=== PATIENT | male | born 1990 | race African-American/Black ===

== ENCOUNTER 2020-02-15 09:42 | Emergency (ER) | payer OTHER ==
[~2020-02-15] VITALS: Ht 180.3 cm; Wt 79.4 kg
[2020-02-15 09:51] VITALS: BP 118/73
== END 2020-02-15 11:32 | disposition home or self-care (01) ==
LOC: ER 09:42
DX: S93.121A Dislocation of metatarsophalangeal joint of right great toe, initial encounter (principal); W18.39XA Other fall on same level, initial encounter; Y93.89 Activity, other specified; Y92.89 Other specified places as the place of occurrence of the external cause; Y99.8 Other external cause status
CPT/HCPCS: 28630; 73660

== ENCOUNTER 2021-02-18 11:25 | Inpatient (IN) | payer OTHER ==
[~2021-02-18] VITALS: Ht 180.3 cm; Wt 80.6 kg
[2021-02-18 11:56] LABS: Eosinophils # (auto) 0 10 ^3/uL (0-0.8); Hemoglobin 17.8 g/dL (13.5-17.5); Neutrophils # (auto) 3.3 10 ^3/uL (1.6-8.6); White Blood Cell 5.3 10^3/uL (4.4-10.8)
[2021-02-18 11:57] LABS: Basophils # (auto) 0.1 10 ^3/uL (0-0.2); Hematocrit 50.6 % (41.0-53.0); Lymphocytes # (auto) 1.4 10 ^3/uL (0.4-5.4); Lymphocytes % (auto) 27.4 % (10.0-50.0); Mean Corpuscular Hemoglobin 32.4 pg (28.0-32.0); Mean Corpuscular Hgb Conc. 35.2 g/dL (32.0-36.0); Mean Corpuscular Volume 91.9 fL (80.0-100.0); Monocytes # (auto) 0.5 10 ^3/uL (0-1.3); Monocytes % (auto) 8.8 % (0.0-12.0); Neutrophils % (auto) 62.8 % (37.0-80.0); Nucleated Red Blood Cells % 0.1 %; Red Cell Distribution Width 14.4 % (11.8-14.3)
[2021-02-18 12:13] LABS: Albumin 3.8 g/dL (3.4-5.0); Calcium 8.3 mg/dL (8.5-10.1); Potassium 4.1 mmol/L (3.5-5.1)
[2021-02-18 12:17] LABS: BUN/Creatinine Ratio 7.3; Bilirubin, Total 0.5 mg/dL (0.2-1.0); Total Protein 8.2 g/dL (6.4-8.2)
[2021-02-18] MEDS ORDERED: METOCLOPRAMIDE HCL 5MG/ml INJ 2ml VIAL IV ONE (12:45)
[2021-02-18] MEDS ORDERED: SODIUM CHLORIDE 0.9% 1,000 ML IVB ONE (12:45)
[2021-02-18] MEDS ORDERED: KETOROLAC TROMETH 30 MG/ML 1ML VIAL IV ONE (12:45)
[2021-02-18] MEDS ORDERED: AZITHROMYCIN 500MG/ 250ML 250 ML IV ONE (13:15)
[2021-02-18] MEDS ORDERED: hydrOXYchloroQUINE SULFATE 200 MG TAB PO ONE (13:30)
[2021-02-18] MEDS ORDERED: DexAMETHasone SOD PHOS 10MG/1ML VIAL INJ IV ONE (13:30)
[2021-02-18] MEDS ORDERED: ZINC SULFATE 220mg CAP or TAB PO ONE (13:30)
[2021-02-18] MEDS ORDERED: ASCORBIC ACID 500 MG TAB PO ONE (13:30)
[2021-02-18] MEDS ORDERED: CHOLECALCIFEROL (VITD3) 2,000 UNIT CAP/TAB PO ONE (13:30)
[2021-02-18] MEDS ORDERED: DexAMETHasone INJECTION 10 MG in D5W 5% 50 ML IV ONE (13:30)
[2021-02-18] MEDS ORDERED: NITROGLYCERIN 0.4 MG SL TAB SL PRN (17:15)
[2021-02-18] MEDS ORDERED: MORPHINE SULFATE INJECTION 2 MG/2 ML SYRG IV PRN ×2 (17:15)
[2021-02-18] MEDS ORDERED: ONDANSETRON HCL 4 MG/2 ML VIAL IV PRN (17:15)
[2021-02-18] MEDS ORDERED: SODIUM CHLORIDE 0.9% 1,000 ML IV ONE (17:15)
[2021-02-18 19:45] VITALS: BP 112/74
[2021-02-18] MEDS: BUDESONIDE (INHALATION) 180 MCG IH IN SCH (22:00)
[2021-02-18 23:00] VITALS: BP 115/60
[2021-02-18] MEDS: ALBUTEROL SULF HFA 90MCG INH 200DOSE IN PRN (23:04)
[2021-02-18] MEDS: ENOXAPARIN SOD 40 MG/0.4 ML SYRINGE SC SCH (23:09)
[2021-02-18] MEDS: ACETAMINOPHEN 500 MG TAB PO PRN (23:10)
[2021-02-19 05:00] VITALS: BP 111/66
[2021-02-19] MEDS: BUDESONIDE (INHALATION) 180 MCG IH IN SCH ×2 (06:46→22:25)
[2021-02-19] MEDS: ALBUTEROL SULF HFA 90MCG INH 200DOSE IN PRN ×2 (06:47→22:25)
[2021-02-19 09:00] VITALS: BP 114/60
[2021-02-19] MEDS: ZINC SULFATE 220mg CAP or TAB PO SCH (11:14)
[2021-02-19] MEDS: ASCORBIC ACID 1,000 MG TAB PO SCH (11:14)
[2021-02-19] MEDS: IVERMECTIN 3 MG TAB PO SCH (11:14)
[2021-02-19] MEDS: DexAMETHasone SOD PHOS 10MG/1ML VIAL INJ IV SCH (11:14)
[2021-02-19] MEDS: AZITHROMYCIN 500MG/ 250ML 250 ML IV SCH (11:14)
[2021-02-19] MEDS: ACETAMINOPHEN 500 MG TAB PO PRN (11:15)
[2021-02-19] MEDS: CHOLECALCIFEROL (VITD3) 2,000 UNIT CAP/TAB PO SCH (11:15)
[2021-02-19] MEDS: ENOXAPARIN SOD 40 MG/0.4 ML SYRINGE SC SCH ×2 (11:15→21:27)
[2021-02-19 13:00] VITALS: BP 103/66
[2021-02-19 17:00] VITALS: BP 111/71
[2021-02-19] MEDS: FAMOTIDINE 20 MG TAB PO SCH (21:27)
[2021-02-19 22:00] VITALS: BP 119/66
[2021-02-20 05:00] VITALS: BP 110/74
[2021-02-20 06:43] LABS: Basophils # (auto) 0 10 ^3/uL (0-0.2); Basophils % (auto) 0.2 % (0.0-2.0); Eosinophils # (auto) 0 10 ^3/uL (0-0.8); Hematocrit 45.7 % (41.0-53.0); Hemoglobin 15.9 g/dL (13.5-17.5); Lymphocytes # (auto) 1.1 10 ^3/uL (0.4-5.4); Lymphocytes % (auto) 20.1 % (10.0-50.0); Mean Corpuscular Hemoglobin 32.1 pg (28.0-32.0); Mean Corpuscular Hgb Conc. 34.9 g/dL (32.0-36.0); Monocytes # (auto) 0.4 10 ^3/uL (0-1.3); Monocytes % (auto) 7.3 % (0.0-12.0); Neutrophils # (auto) 3.8 10 ^3/uL (1.6-8.6); Neutrophils % (auto) 72.4 % (37.0-80.0); Nucleated Red Blood Cells % 0.3 %; Red Blood Cells 4.97 10^6/uL (4.5-5.90); Red Cell Distribution Width 14.2 % (11.8-14.3); White Blood Cell 5.3 10^3/uL (4.4-10.8)
[2021-02-20 07:01] LABS: Albumin 3.1 g/dL (3.4-5.0); Calcium 8.2 mg/dL (8.5-10.1); Magnesium 2.4 mg/dL (1.6-2.6); Potassium 4.2 mmol/L (3.5-5.1)
[2021-02-20 07:13] LABS: BUN/Creatinine Ratio 8.4; Bilirubin, Total 0.4 mg/dL (0.2-1.0); CRP High Sensitivity 2.82 mg/dL (< 0.3)
[2021-02-20] MEDS: BUDESONIDE (INHALATION) 180 MCG IH IN SCH ×2 (07:17→22:56)
[2021-02-20] MEDS: ALBUTEROL SULF HFA 90MCG INH 200DOSE IN PRN ×2 (07:17→23:29)
[2021-02-20 09:00] VITALS: BP 123/70
[2021-02-20] MEDS: DexAMETHasone SOD PHOS 10MG/1ML VIAL INJ IV SCH (10:17)
[2021-02-20] MEDS: ASCORBIC ACID 1,000 MG TAB PO SCH (10:18)
[2021-02-20] MEDS: IVERMECTIN 3 MG TAB PO SCH (10:18)
[2021-02-20] MEDS: FAMOTIDINE 20 MG TAB PO SCH ×2 (10:18→22:39)
[2021-02-20] MEDS: ZINC SULFATE 220mg CAP or TAB PO SCH (10:18)
[2021-02-20] MEDS: CHOLECALCIFEROL (VITD3) 2,000 UNIT CAP/TAB PO SCH (10:18)
[2021-02-20] MEDS: ENOXAPARIN SOD 40 MG/0.4 ML SYRINGE SC SCH ×2 (10:18→22:39)
[2021-02-20] MEDS: AZITHROMYCIN 500MG/ 250ML 250 ML IV SCH (10:18)
[2021-02-20] MEDS: ACETAMINOPHEN 500 MG TAB PO PRN (10:19)
[2021-02-20 13:00] VITALS: BP 93/56
[2021-02-20 17:00] VITALS: BP 113/70
[2021-02-20] MEDS: guaiFENesin-DM 100/10mg/5ml SYR PO PRN (20:29)
[2021-02-20 22:00] VITALS: BP 90/61
[2021-02-21] MEDS: guaiFENesin-DM 100/10mg/5ml SYR PO PRN ×2 (04:23→19:28)
[2021-02-21 05:00] VITALS: BP 123/71
[2021-02-21] MEDS: ACETAMINOPHEN 500 MG TAB PO PRN (05:51)
[2021-02-21] MEDS: BUDESONIDE (INHALATION) 180 MCG IH IN SCH ×2 (07:13→21:40)
[2021-02-21] MEDS: ALBUTEROL SULF HFA 90MCG INH 200DOSE IN PRN ×2 (07:13→22:52)
[2021-02-21 09:00] VITALS: BP 112/65
[2021-02-21] MEDS: ZINC SULFATE 220mg CAP or TAB PO SCH (12:44)
[2021-02-21] MEDS: DexAMETHasone SOD PHOS 10MG/1ML VIAL INJ IV SCH (12:44)
[2021-02-21] MEDS: IVERMECTIN 3 MG TAB PO SCH (12:44)
[2021-02-21] MEDS: AZITHROMYCIN 500MG/ 250ML 250 ML IV SCH (12:44)
[2021-02-21] MEDS: FAMOTIDINE 20 MG TAB PO SCH ×2 (12:44→21:56)
[2021-02-21] MEDS: ASCORBIC ACID 1,000 MG TAB PO SCH (12:45)
[2021-02-21] MEDS: CHOLECALCIFEROL (VITD3) 2,000 UNIT CAP/TAB PO SCH (12:45)
[2021-02-21] MEDS: ENOXAPARIN SOD 40 MG/0.4 ML SYRINGE SC SCH ×2 (12:45→21:56)
[2021-02-21 13:00] VITALS: BP 117/67
[2021-02-21] MEDS: cefTRIAXone 1GM/50ML D5W 50 ML IV SCH (14:50)
[2021-02-21 16:58] VITALS: BP 122/71
[2021-02-21 22:00] VITALS: BP 109/71
[2021-02-22 01:42] VITALS: BP 109/70
[2021-02-22 05:00] VITALS: BP 110/69
[2021-02-22] MEDS: ALBUTEROL SULF HFA 90MCG INH 200DOSE IN PRN (07:11)
[2021-02-22] MEDS: BUDESONIDE (INHALATION) 180 MCG IH IN SCH ×2 (07:11→23:14)
[2021-02-22] MEDS: cefTRIAXone 1GM/50ML D5W 50 ML IV SCH (07:59)
[2021-02-22] MEDS: DexAMETHasone SOD PHOS 10MG/1ML VIAL INJ IV SCH (08:39)
[2021-02-22] MEDS: AZITHROMYCIN 500MG/ 250ML 250 ML IV SCH (08:40)
[2021-02-22] MEDS: ZINC SULFATE 220mg CAP or TAB PO SCH (08:41)
[2021-02-22] MEDS: FAMOTIDINE 20 MG TAB PO SCH ×2 (08:42→22:35)
[2021-02-22] MEDS: ASCORBIC ACID 1,000 MG TAB PO SCH (08:42)
[2021-02-22] MEDS: IVERMECTIN 3 MG TAB PO SCH (08:42)
[2021-02-22] MEDS: ENOXAPARIN SOD 40 MG/0.4 ML SYRINGE SC SCH ×2 (08:43→22:35)
[2021-02-22] MEDS: CHOLECALCIFEROL (VITD3) 2,000 UNIT CAP/TAB PO SCH (08:43)
[2021-02-22 09:00] VITALS: BP 128/74
[2021-02-22 13:00] VITALS: BP 118/76
[2021-02-22 17:00] VITALS: BP 131/76
[2021-02-22 21:41] VITALS: BP 114/71
[2021-02-23] MEDS: ALBUTEROL SULF HFA 90MCG INH 200DOSE IN PRN ×3 (00:07→20:01)
[2021-02-23 05:00] VITALS: BP 113/70
[2021-02-23] MEDS: BUDESONIDE (INHALATION) 180 MCG IH IN SCH ×2 (06:47→20:01)
[2021-02-23] MEDS: cefTRIAXone 1GM/50ML D5W 50 ML IV SCH (07:55)
[2021-02-23] MEDS: FAMOTIDINE 20 MG TAB PO SCH ×2 (07:56→21:18)
[2021-02-23] MEDS: ZINC SULFATE 220mg CAP or TAB PO SCH (07:56)
[2021-02-23] MEDS: DexAMETHasone SOD PHOS 10MG/1ML VIAL INJ IV SCH (07:56)
[2021-02-23] MEDS: CHOLECALCIFEROL (VITD3) 2,000 UNIT CAP/TAB PO SCH (07:57)
[2021-02-23] MEDS: IVERMECTIN 3 MG TAB PO SCH (07:57)
[2021-02-23] MEDS: ASCORBIC ACID 1,000 MG TAB PO SCH (07:57)
[2021-02-23] MEDS: ENOXAPARIN SOD 40 MG/0.4 ML SYRINGE SC SCH ×2 (07:57→21:19)
[2021-02-23 09:00] VITALS: BP 115/70
[2021-02-23] MEDS: AZITHROMYCIN 500MG/ 250ML 250 ML IV SCH (09:02)
[2021-02-23] MEDS ORDERED: ERGOCALCIFEROL 50,000 UNIT(1.25MG) CAP PO ONE (11:45)
[2021-02-23] MEDS ORDERED: REMDESIVIR PER PHARMACY 0 ML IV SCH (11:45)
[2021-02-23 12:25] LABS: BUN/Creatinine Ratio 15.8; Calcium 8.8 mg/dL (8.5-10.1); Potassium 4.4 mmol/L (3.5-5.1)
[2021-02-23 13:00] VITALS: BP 119/72
[2021-02-23] MEDS ORDERED: FUROSEMIDE 20 MG/2 ML VIAL IV ONE (13:00)
[2021-02-23] MEDS ORDERED: REMDESIVIR 200 MG in NS 210ml LOADING DOSE ADULT IV ONE (15:00)
[2021-02-23 17:00] VITALS: BP 108/81
[2021-02-23] MEDS: DOXYCYCLINE 100MG/250ML 250 ML IV SCH (21:18)
[2021-02-23 22:00] VITALS: BP 116/72
[2021-02-24 04:36] VITALS: BP 111/63
[2021-02-24 06:54] LABS: Basophils # (auto) 0 10 ^3/uL (0-0.2); Basophils % (auto) 0.2 % (0.0-2.0); Eosinophils # (auto) 0 10 ^3/uL (0-0.8); Eosinophils % (auto) 0.1 % (0.0-7.0); Hematocrit 49.1 % (41.0-53.0); Lymphocytes # (auto) 1.1 10 ^3/uL (0.4-5.4); Lymphocytes % (auto) 12.8 % (10.0-50.0); Mean Corpuscular Hemoglobin 32.2 pg (28.0-32.0); Mean Corpuscular Hgb Conc. 34.5 g/dL (32.0-36.0); Mean Corpuscular Volume 93.3 fL (80.0-100.0); Monocytes # (auto) 0.8 10 ^3/uL (0-1.3); Monocytes % (auto) 9.2 % (0.0-12.0); Neutrophils # (auto) 6.5 10 ^3/uL (1.6-8.6); Neutrophils % (auto) 77.7 % (37.0-80.0); Red Blood Cells 5.27 10^6/uL (4.5-5.90); Red Cell Distribution Width 14.3 % (11.8-14.3); White Blood Cell 8.3 10^3/uL (4.4-10.8)
[2021-02-24] MEDS: ALBUTEROL SULF HFA 90MCG INH 200DOSE IN PRN ×2 (07:20→21:16)
[2021-02-24] MEDS: BUDESONIDE (INHALATION) 180 MCG IH IN SCH ×2 (07:20→21:16)
[2021-02-24 07:31] LABS: Albumin 2.6 g/dL (3.4-5.0); BUN/Creatinine Ratio 21.5; Bilirubin, Total 0.5 mg/dL (0.2-1.0); CRP High Sensitivity 9.95 mg/dL (< 0.3); Calcium 8.9 mg/dL (8.5-10.1); Magnesium 2.7 mg/dL (1.6-2.6); Total Protein 7.6 g/dL (6.4-8.2)
[2021-02-24] MEDS: DexAMETHasone SOD PHOS 10MG/1ML VIAL INJ IV SCH (07:58)
[2021-02-24] MEDS: DOXYCYCLINE 100MG/250ML 250 ML IV SCH (07:58)
[2021-02-24] MEDS: ZINC SULFATE 220mg CAP or TAB PO SCH (07:58)
[2021-02-24] MEDS: ASCORBIC ACID 1,000 MG TAB PO SCH (07:59)
[2021-02-24] MEDS: ENOXAPARIN SOD 40 MG/0.4 ML SYRINGE SC SCH ×2 (07:59→22:03)
[2021-02-24] MEDS: FAMOTIDINE 20 MG TAB PO SCH ×2 (07:59→22:02)
[2021-02-24 08:48] VITALS: BP 111/73
[2021-02-24] MEDS: FUROSEMIDE 20 MG/2 ML VIAL IV SCH (09:57)
[2021-02-24] MEDS ORDERED: CHOLECALCIFEROL (VITD3) 2,000 UNIT CAP/TAB PO SCH (10:00)
[2021-02-24 13:00] VITALS: BP 115/69
[2021-02-24] MEDS: REMDESIVIR 100mg 100 MG in SODIUM CHL 0.9% 230 ML IV SCH (14:51)
[2021-02-24 16:53] VITALS: BP 108/57
[2021-02-24] MEDS: DOXYCYCLINE 100 MG TAB/CAP PO SCH (22:03)
[2021-02-24 22:07] VITALS: BP 112/68
[2021-02-25 03:00] VITALS: BP 112/68
[2021-02-25 05:00] VITALS: BP 120/72
[2021-02-25 06:45] LABS: Albumin 2.7 g/dL (3.4-5.0); Calcium 9.2 mg/dL (8.5-10.1); Potassium 4.1 mmol/L (3.5-5.1)
[2021-02-25 06:49] LABS: Bilirubin, Total 0.5 mg/dL (0.2-1.0); Total Protein 7.8 g/dL (6.4-8.2)
[2021-02-25] MEDS: ALBUTEROL SULF HFA 90MCG INH 200DOSE IN PRN ×2 (06:56→22:20)
[2021-02-25] MEDS: BUDESONIDE (INHALATION) 180 MCG IH IN SCH ×2 (06:56→22:20)
[2021-02-25 09:00] VITALS: BP 122/77
[2021-02-25] MEDS: ENOXAPARIN SOD 40 MG/0.4 ML SYRINGE SC SCH ×2 (09:27→23:05)
[2021-02-25] MEDS: DexAMETHasone SOD PHOS 10MG/1ML VIAL INJ IV SCH (09:27)
[2021-02-25] MEDS: ZINC SULFATE 220mg CAP or TAB PO SCH (09:27)
[2021-02-25] MEDS: ASCORBIC ACID 1,000 MG TAB PO SCH (09:28)
[2021-02-25] MEDS: DOXYCYCLINE 100 MG TAB/CAP PO SCH ×2 (09:28→23:05)
[2021-02-25] MEDS: FAMOTIDINE 20 MG TAB PO SCH ×2 (09:28→23:04)
[2021-02-25] MEDS: CHOLECALCIFEROL (VITD3) 2,000 UNIT CAP/TAB PO SCH (09:28)
[2021-02-25] MEDS: DOCUSATE SOD 100 MG CAP PO SCH ×2 (09:28→23:04)
[2021-02-25] MEDS: FUROSEMIDE 20 MG/2 ML VIAL IV SCH (09:30)
[2021-02-25] MEDS: LACTULOSE 20Gm/30ML SOLN PO PRN (09:43)
[2021-02-25] MEDS ORDERED: CHOLECALCIFEROL (VITD3) 2,000 UNIT CAP/TAB PO SCH (10:00)
[2021-02-25] MEDS: REMDESIVIR 100mg 100 MG in SODIUM CHL 0.9% 230 ML IV SCH (14:49)
[2021-02-25 17:00] VITALS: BP 109/73
[2021-02-25 22:00] VITALS: BP 117/71
[2021-02-26 05:00] VITALS: BP 109/72
[2021-02-26] MEDS: BUDESONIDE (INHALATION) 180 MCG IH IN SCH ×2 (07:00→21:38)
[2021-02-26] MEDS: ALBUTEROL SULF HFA 90MCG INH 200DOSE IN PRN ×2 (07:00→21:38)
[2021-02-26 07:02] LABS: Albumin 2.8 g/dL (3.4-5.0); Potassium 3.9 mmol/L (3.5-5.1)
[2021-02-26 07:05] LABS: Bilirubin, Total 0.6 mg/dL (0.2-1.0); Total Protein 7.7 g/dL (6.4-8.2)
[2021-02-26 08:30] VITALS: BP 124/73
[2021-02-26] MEDS: ENOXAPARIN SOD 40 MG/0.4 ML SYRINGE SC SCH ×2 (10:00→21:49)
[2021-02-26] MEDS: DexAMETHasone SOD PHOS 10MG/1ML VIAL INJ IV SCH (10:05)
[2021-02-26] MEDS: DOCUSATE SOD 100 MG CAP PO SCH ×2 (10:06→21:49)
[2021-02-26] MEDS: ZINC SULFATE 220mg CAP or TAB PO SCH (10:06)
[2021-02-26] MEDS: FUROSEMIDE 20 MG/2 ML VIAL IV SCH (10:06)
[2021-02-26] MEDS: DOXYCYCLINE 100 MG TAB/CAP PO SCH ×2 (10:07→21:49)
[2021-02-26] MEDS: ASCORBIC ACID 1,000 MG TAB PO SCH (10:07)
[2021-02-26] MEDS: FAMOTIDINE 20 MG TAB PO SCH ×2 (10:07→21:49)
[2021-02-26] MEDS: CHOLECALCIFEROL (VITD3) 2,000 UNIT CAP/TAB PO SCH (10:07)
[2021-02-26] MEDS: ACETAMINOPHEN 500 MG TAB PO PRN ×2 (10:46→22:47)
[2021-02-26 12:30] VITALS: BP 111/69
[2021-02-26] MEDS: REMDESIVIR 100mg 100 MG in SODIUM CHL 0.9% 230 ML IV SCH (13:06)
[2021-02-26] MEDS: LACTULOSE 20Gm/30ML SOLN PO PRN (13:07)
[2021-02-26] MEDS: guaiFENesin-DM 100/10mg/5ml SYR PO PRN (13:07)
[2021-02-26 17:00] VITALS: BP 119/73
[2021-02-26 22:07] VITALS: BP 113/78
[2021-02-27 05:00] VITALS: BP 124/71
[2021-02-27 06:22] LABS: INR 1.21 (0.9-1.15)
[2021-02-27 06:51] LABS: Albumin 2.5 g/dL (3.4-5.0); Calcium 8.6 mg/dL (8.5-10.1); Magnesium 2.3 mg/dL (1.6-2.6); Potassium 3.8 mmol/L (3.5-5.1)
[2021-02-27 07:04] LABS: Bilirubin, Total 0.7 mg/dL (0.2-1.0); Total Protein 7.2 g/dL (6.4-8.2)
[2021-02-27 07:22] LABS: BUN/Creatinine Ratio 15.8
[2021-02-27] MEDS: DexAMETHasone SOD PHOS 10MG/1ML VIAL INJ IV SCH (07:46)
[2021-02-27] MEDS: FUROSEMIDE 20 MG/2 ML VIAL IV SCH (07:47)
[2021-02-27] MEDS: DOXYCYCLINE 100 MG TAB/CAP PO SCH ×2 (07:48→22:15)
[2021-02-27] MEDS: ZINC SULFATE 220mg CAP or TAB PO SCH (07:48)
[2021-02-27] MEDS: FAMOTIDINE 20 MG TAB PO SCH ×2 (07:49→22:15)
[2021-02-27] MEDS: CHOLECALCIFEROL (VITD3) 2,000 UNIT CAP/TAB PO SCH (07:50)
[2021-02-27] MEDS: ASCORBIC ACID 1,000 MG TAB PO SCH (07:50)
[2021-02-27] MEDS: DOCUSATE SOD 100 MG CAP PO SCH ×2 (07:51→22:15)
[2021-02-27] MEDS: ENOXAPARIN SOD 40 MG/0.4 ML SYRINGE SC SCH ×2 (07:51→22:15)
[2021-02-27] MEDS: guaiFENesin-DM 100/10mg/5ml SYR PO PRN ×2 (07:52→22:26)
[2021-02-27 08:00] VITALS: BP 110/61
[2021-02-27 08:56] VITALS: BP 110/61
[2021-02-27] MEDS: ALBUTEROL SULF HFA 90MCG INH 200DOSE IN PRN ×2 (09:05→22:21)
[2021-02-27] MEDS: BUDESONIDE (INHALATION) 180 MCG IH IN SCH ×2 (09:05→22:21)
[2021-02-27] MEDS ORDERED: CHOLECALCIFEROL (VITD3) 2,000 UNIT CAP/TAB PO ONE (10:30)
[2021-02-27] MEDS: TOCILIZUMAB 400 MG in SODIUM CHL 0.9% 80 ML IV SCH (12:21)
[2021-02-27 14:00] VITALS: BP 120/69
[2021-02-27] MEDS: REMDESIVIR 100mg 100 MG in SODIUM CHL 0.9% 230 ML IV SCH (16:03)
[2021-02-27 17:10] VITALS: BP 116/71
[2021-02-27 22:21] VITALS: BP 125/72
[2021-02-28 04:11] VITALS: BP 125/72
[2021-02-28 05:11] VITALS: BP 108/69
[2021-02-28] MEDS: ALBUTEROL SULF HFA 90MCG INH 200DOSE IN PRN ×2 (07:01→19:45)
[2021-02-28] MEDS: BUDESONIDE (INHALATION) 180 MCG IH IN SCH ×2 (07:02→19:45)
[2021-02-28 07:56] LABS: Mean Corpuscular Hgb Conc. 34.6 g/dL (32.0-36.0)
[2021-02-28 07:58] LABS: Hematocrit 48.2 % (41.0-53.0); Hemoglobin 16.7 g/dL (13.5-17.5); Mean Corpuscular Volume 92.5 fL (80.0-100.0); Red Cell Distribution Width 14.1 % (11.8-14.3)
[2021-02-28 08:10] LABS: INR 1.14 (0.9-1.15)
[2021-02-28 08:17] LABS: Calcium 8.7 mg/dL (8.5-10.1); Potassium 4.4 mmol/L (3.5-5.1)
[2021-02-28 08:26] LABS: Band Neutrophils % (manual) 0; Basophils % (manual) 0 (0.0-2.0); Blast Cells 0; Metamyelocytes % 0; Myelocytes % 0; Promyelocytes % 0
[2021-02-28] MEDS: DexAMETHasone SOD PHOS 10MG/1ML VIAL INJ IV SCH (09:03)
[2021-02-28] MEDS: ZINC SULFATE 220mg CAP or TAB PO SCH (09:04)
[2021-02-28] MEDS: FUROSEMIDE 20 MG/2 ML VIAL IV SCH (09:04)
[2021-02-28] MEDS: DOCUSATE SOD 100 MG CAP PO SCH ×2 (09:05→22:20)
[2021-02-28] MEDS: POTASSIUM CHL 20 Meq TABLET PO SCH (09:05)
[2021-02-28] MEDS: ASCORBIC ACID 1,000 MG TAB PO SCH (09:06)
[2021-02-28] MEDS: DOXYCYCLINE 100 MG TAB/CAP PO SCH ×2 (09:06→22:20)
[2021-02-28] MEDS: FAMOTIDINE 20 MG TAB PO SCH ×2 (09:06→22:20)
[2021-02-28] MEDS: CHOLECALCIFEROL (VITD3) 2,000 UNIT CAP/TAB PO SCH (09:07)
[2021-02-28] MEDS: ENOXAPARIN SOD 40 MG/0.4 ML SYRINGE SC SCH ×2 (09:07→22:21)
[2021-02-28 09:17] VITALS: BP 117/65
[2021-02-28] MEDS: guaiFENesin-DM 100/10mg/5ml SYR PO PRN ×2 (09:34→22:44)
[2021-02-28] MEDS ORDERED: CHOLECALCIFEROL (VITD3) 2,000 UNIT CAP/TAB PO SCH (10:00)
[2021-02-28] MEDS: TOCILIZUMAB 400 MG in SODIUM CHL 0.9% 80 ML IV SCH (11:28)
[2021-02-28 12:23] LABS: Eosinophils % (manual) 2 (0-7); Lymphocytes % (manual) 18 (10.0-50.0); Monocytes % (manual) 5 (0-12); Reactive Lymphocytes 2
[2021-02-28 13:34] VITALS: BP 116/71
[2021-02-28 17:19] VITALS: BP 107/68
[2021-02-28 17:33] LABS: Mean Corpuscular Hemoglobin 32.3 pg (28.0-32.0)
[2021-02-28 17:35] LABS: Hematocrit 50.7 % (41.0-53.0); Hemoglobin 17.8 g/dL (13.5-17.5); Mean Corpuscular Volume 92.2 fL (80.0-100.0); Red Cell Distribution Width 14.4 % (11.8-14.3); White Blood Cell 12.5 10^3/uL (4.4-10.8)
[2021-02-28 17:43] LABS: Albumin 2.8 g/dL (3.4-5.0); Bilirubin, Direct 0.2 mg/dL (0-0.2)
[2021-02-28 17:45] LABS: Band Neutrophils % (manual) 0; Basophils % (manual) 0 (0.0-2.0); Blast Cells 0; Metamyelocytes % 0; Myelocytes % 0; Promyelocytes % 0; Reactive Lymphocytes 0
[2021-02-28 17:46] LABS: Bilirubin, Total 0.4 mg/dL (0.2-1.0); Total Protein 8.2 g/dL (6.4-8.2)
[2021-02-28 18:05] LABS: Eosinophils % (manual) 2 (0-7); Lymphocytes % (manual) 14 (10.0-50.0); Monocytes % (manual) 5 (0-12)
[2021-02-28 19:08] LABS: INR 1.18 (0.9-1.15); Partial Thromboplastin Time 30.2 sec (23.6-33.0)
[2021-02-28 22:25] VITALS: BP 116/71
[2021-02-28] MEDS: ACETAMINOPHEN 500 MG TAB PO PRN (22:44)
[2021-03-01 05:16] VITALS: BP 107/74
[2021-03-01 08:00] VITALS: BP 107/68
[2021-03-01] MEDS: DexAMETHasone SOD PHOS 10MG/1ML VIAL INJ IV SCH (10:00)
[2021-03-01] MEDS: BUDESONIDE (INHALATION) 180 MCG IH IN SCH ×2 (10:00→21:46)
[2021-03-01] MEDS: guaiFENesin-DM 100/10mg/5ml SYR PO PRN ×2 (10:11→22:30)
[2021-03-01] MEDS: DOCUSATE SOD 100 MG CAP PO SCH ×2 (10:12→22:23)
[2021-03-01] MEDS: ZINC SULFATE 220mg CAP or TAB PO SCH (10:12)
[2021-03-01] MEDS: FAMOTIDINE 20 MG TAB PO SCH ×2 (10:12→22:23)
[2021-03-01] MEDS: POTASSIUM CHL 20 Meq TABLET PO SCH (10:12)
[2021-03-01] MEDS: FUROSEMIDE 20 MG/2 ML VIAL IV SCH (10:12)
[2021-03-01] MEDS: ENOXAPARIN SOD 40 MG/0.4 ML SYRINGE SC SCH ×2 (10:13→22:23)
[2021-03-01] MEDS: DOXYCYCLINE 100 MG TAB/CAP PO SCH (10:13)
[2021-03-01] MEDS: CHOLECALCIFEROL (VITD3) 2,000 UNIT CAP/TAB PO SCH (10:13)
[2021-03-01] MEDS: ASCORBIC ACID 1,000 MG TAB PO SCH (10:13)
[2021-03-01 12:00] VITALS: BP 109/67
[2021-03-01 16:00] VITALS: BP 118/62
[2021-03-01 19:12] LABS: Hematocrit 48.7 % (41.0-53.0); Hemoglobin 17.1 g/dL (13.5-17.5); Mean Corpuscular Hemoglobin 32.4 pg (28.0-32.0); Mean Corpuscular Hgb Conc. 35.1 g/dL (32.0-36.0); Mean Corpuscular Volume 92.3 fL (80.0-100.0); Red Blood Cells 5.27 10^6/uL (4.5-5.90); White Blood Cell 10.8 10^3/uL (4.4-10.8)
[2021-03-01 19:27] LABS: BUN/Creatinine Ratio 15.8; Potassium 4.1 mmol/L (3.5-5.1)
[2021-03-01 19:39] LABS: Basophils % (manual) 0 (0.0-2.0); Blast Cells 0; Metamyelocytes % 0; Myelocytes % 0; Promyelocytes % 0; Reactive Lymphocytes 0
[2021-03-01 20:32] LABS: Band Neutrophils % (manual) 2; Eosinophils % (manual) 1 (0-7); Lymphocytes % (manual) 13 (10.0-50.0); Monocytes % (manual) 4 (0-12)
[2021-03-01 22:25] VITALS: BP 117/73
[2021-03-02] VITALS (7 sets, daily range): BP systolic 100–116; BP diastolic 54–82
[2021-03-02] MEDS: ALBUTEROL SULF HFA 90MCG INH 200DOSE IN PRN ×2 (06:13→20:11)
[2021-03-02] MEDS: BUDESONIDE (INHALATION) 180 MCG IH IN SCH ×2 (06:13→20:11)
[2021-03-02] MEDS: POTASSIUM CHL 20 Meq TABLET PO SCH (09:23)
[2021-03-02] MEDS: ASCORBIC ACID 1,000 MG TAB PO SCH (09:23)
[2021-03-02] MEDS: ZINC SULFATE 220mg CAP or TAB PO SCH (09:23)
[2021-03-02] MEDS: DOCUSATE SOD 100 MG CAP PO SCH ×2 (09:24→21:59)
[2021-03-02] MEDS: FAMOTIDINE 20 MG TAB PO SCH ×2 (09:24→21:59)
[2021-03-02] MEDS: ENOXAPARIN SOD 40 MG/0.4 ML SYRINGE SC SCH ×2 (09:26→21:59)
[2021-03-02] MEDS: CHOLECALCIFEROL (VITD3) 2,000 UNIT CAP/TAB PO SCH (09:26)
[2021-03-02] MEDS: FUROSEMIDE 20 MG/2 ML VIAL IV SCH (09:26)
[2021-03-02] MEDS: DexAMETHasone SOD PHOS 10MG/1ML VIAL INJ IV SCH (09:27)
[2021-03-02] MEDS ORDERED: ASPI-463 PO (12:06)
[2021-03-02] MEDS ORDERED: ASCO10003 PO (12:06)
[2021-03-02] MEDS ORDERED: ALBUAER3 IN (12:06)
[2021-03-02] MEDS ORDERED: BUDE2SUS3 IN (12:06)
[2021-03-02] MEDS ORDERED: FAMO-12 PO (12:06)
[2021-03-02] MEDS ORDERED: DEXT1SYP9 PO (12:06)
[2021-03-02] MEDS ORDERED: DOXY-286 PO (12:06)
[2021-03-02] MEDS ORDERED: CHOL20007 PO (12:06)
[2021-03-02] MEDS ORDERED: DEX4T PO (12:06)
[2021-03-02] MEDS ORDERED: ZINC220T6 PO (12:06)
[2021-03-02] MEDS ORDERED: IOHEXOL 350 MG/ML 100ML IJ ONE (16:32)
[2021-03-02] MEDS: guaiFENesin-DM 100/10mg/5ml SYR PO PRN (22:00)
[2021-03-03 06:08] VITALS: BP 119/71
[2021-03-03 06:46] LABS: BUN/Creatinine Ratio 24.4; Calcium 8.4 mg/dL (8.5-10.1)
[2021-03-03] MEDS: ALBUTEROL SULF HFA 90MCG INH 200DOSE IN PRN (06:51)
[2021-03-03] MEDS: BUDESONIDE (INHALATION) 180 MCG IH IN SCH (06:51)
[2021-03-03 09:00] VITALS: BP 99/52
[2021-03-03] MEDS: FUROSEMIDE 20 MG/2 ML VIAL IV SCH (09:58)
[2021-03-03] MEDS: DexAMETHasone SOD PHOS 10MG/1ML VIAL INJ IV SCH (09:58)
[2021-03-03] MEDS: POTASSIUM CHL 20 Meq TABLET PO SCH (10:00)
[2021-03-03] MEDS: ASCORBIC ACID 1,000 MG TAB PO SCH (10:00)
[2021-03-03] MEDS: FAMOTIDINE 20 MG TAB PO SCH (10:00)
[2021-03-03] MEDS: ZINC SULFATE 220mg CAP or TAB PO SCH (10:00)
[2021-03-03] MEDS: CHOLECALCIFEROL (VITD3) 2,000 UNIT CAP/TAB PO SCH (10:00)
[2021-03-03] MEDS: DOCUSATE SOD 100 MG CAP PO SCH (10:00)
[2021-03-03] MEDS: ENOXAPARIN SOD 40 MG/0.4 ML SYRINGE SC SCH (10:00)
[2021-03-03 13:00] VITALS: BP 122/68
== END 2021-03-03 17:10 | disposition home or self-care (01) | DRG 871 ==
LOC: ER 11:25 → TELE 17:02 → TELE-EAST 22:22
PROVIDERS: ADMIT Nurse Practitioner Acute Care; ATTEND Internal Medicine
PROC: XW033E5 Introduction of Remdesivir Anti-infective into Peripheral Vein, Percutaneous Approach, New Technology Group 5 (ICD-10-PCS; principal; 2021-02-23)
PROC: XW033H5 Introduction of Tocilizumab into Peripheral Vein, Percutaneous Approach, New Technology Group 5 (ICD-10-PCS; 2021-02-27)
DX: A41.89 Other specified sepsis (principal); U07.1 COVID-19; J12.82 Pneumonia due to coronavirus disease 2019; N17.0 Acute kidney failure with tubular necrosis; J96.01 Acute respiratory failure with hypoxia; K52.9 Noninfective gastroenteritis and colitis, unspecified; E86.0 Dehydration; D89.839 Cytokine release syndrome, grade unspecified; D69.6 Thrombocytopenia, unspecified; E55.9 Vitamin D deficiency, unspecified
CPT/HCPCS: 36415; 36600; 71045; 71046; 71250; 71275; 74176; 80048; 80053; 80076; 82150; 82306; 82728; 82805; 83605; 83615; 83690; 83735; 85007; 85025; 85027; 85379; 85610; 85730; 86141; 87040; 87426; 93005; 94640; 96361; 96374; 96375; G0378; J0696; J1100; J1885; J2405; J3490; J7060